=== PATIENT | male | born 1960 | race Caucasian/White ===

== ENCOUNTER 2016-06-25 12:57 | Emergency (ER) | payer BC, OTHER ==
[2016-06-25] MEDS ORDERED: KETOROLAC 30 MG/ML VIAL (J1885) As Ordered ONE (13:41)
[2016-06-25 13:57] LABS: BASO # 0.1 K/mm3 (0.0-0.2); BASO % 1.2 % (0.0-1.0); EOS # 0.3 K/mm3 (0.0-0.50); EOS % 3.7 % (0.0-3.0); LARGE UNSTAINED CELL # 0.1 K/mm3 (0.0-0.4); LARGE UNSTAINED CELL % 1.3 % (0.0-4.0); LYMPH # 1.6 K/mm3 (1.5-4.5); LYMPH % 16.9 % (24.0-44.0); MEAN CORPUSCULAR HEMOGLOBIN 28.4 pg (27.0-33.0); MEAN CORPUSCULAR VOLUME 83.6 fl (80.0-96.0); MONO # 0.5 K/mm3 (0.0-0.8); NEUTROPHILS # 6.4 K/mm3 (1.8-7.7); NEUTROPHILS % 71.8 % (36.0-66.0); PLATELET COUNT, AUTOMATED 249 k/mm3 (150-450); RED CELL DISTRIBUTION WIDTH 13.3 % (11.5-14.5); WHITE BLOOD COUNT 8.9 K/mm3 (4.0-10.0)
[2016-06-25 14:16] LABS: ALBUMIN 3.4 GM/DL (3.2-5.2); ALBUMIN/GLOBULIN RATIO 0.77 (1.00-1.93); ALKALINE PHOSPHATASE 69 U/L (45-117); ALT/SGPT 39 U/L (12-78); ANION GAP 7 MEQ/L (8-16); AST/SGOT 28 U/L (15-37); BILIRUBIN,DIRECT < 0.1 MG/DL (0.0-0.2); BILIRUBIN,TOTAL 0.4 MG/DL (0.2-1.0); BLOOD UREA NITROGEN 15 MG/DL (7-18); CALCIUM LEVEL 8.8 MG/DL (8.5-10.1); CARBON DIOXIDE LEVEL 28 MEQ/L (21-32); CHLORIDE LEVEL 105 MEQ/L (98-107); CREATININE FOR GFR 0.99 MG/DL (0.70-1.30); GLOMERULAR FILTRATION RATE > 60.0 (>56); GLUCOSE, FASTING 226 MG/DL (70-105); POTASSIUM SERUM 3.9 MEQ/L (3.5-5.1); SODIUM LEVEL 140 MEQ/L (136-145); TOTAL PROTEIN 7.8 GM/DL (6.4-8.2)
[2016-06-25] MEDS ORDERED: ISOVUE-370 76% 100ML VIAL (Q9967) As Ordered ONE (14:18)
--- NOTE | 2016-06-25 14:56 | REP ---
CT ABDOMEN AND PELVIS WITH IV BUT WITHOUT ORAL CONTRAST: HISTORY: Hernia. Comparison CT study is from October 18, 2003. The patient gives a prior history of hernia repair. CT contrast dose: 100 mL of Isovue 370 is administered intravenously by auto injector. 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 The lung bases are clear. There is no evidence of pleural effusion. There is moderate diffuse fatty infiltration of the liver. No focal liver lesion is appreciated. The spleen is unremarkable. No adrenal lesion is seen. Pancreas and gallbladder are intact and unremarkable. The kidneys enhance symmetrically. There is a peripheral cyst at the left mid kidney level posteriorly measuring 1.9 cm and a larger peripheral cyst is seen in the left lower pole measuring 5.0 cm in greatest diameter. This is a little larger than it was in 2004. There is a ventral hernia with omental fat in the periumbilical midline region. The abdominal wall defect measures 3.2 cm in medial to lateral span x 2.2 cm craniocaudal. Just above this is another smaller defect transmitting a lobule of fat 1.0 x 2.3 cm defect. No other abdominal wall defect is seen. No pelvic mass or adenopathy is seen. Urinary bladder, seminal vesicles and prostate are intact. Small and large intestinal bowel loops are unremarkable. Bone window settings show osteoarthritic changes in the hips and mild degenerative disc and facet changes in the lower lumbar spine. IMPRESSION: Periumbilical ventral hernia transmitting abdominal fat through two adjacent abdominal wall defects. Signed by Lewis Samayoa MD 06/25/2016 03:00 P
--- NOTE | 2016-06-25 15:24 | EDDOCDS ---
Physician Documentation [facility] Name: Korey Xie Age: 55 yrs Sex: Male : 1960 Arrival Date: 06/25/2016 Time: 12:57 Bed I3 / M3 Private MD: Shant Gordillo MD Disposition: 06/25/16 15:14 Discharged to Home/Self Care. Impression: Ventral hernia without obstruction or gangrene. - Condition is Stable. - Discharge Instructions: Ventral Hernia. - Prescriptions for Hydrocodone- Acetaminophen 5-325 mg Oral Tablet - take 1 tablet by ORAL route every 6 hours As needed MDD: 4 tabs; 16 tablet. Dulcolax 5 mg - take 2 tablet by ORAL route at bedtime As needed; 30 tablet. Miralax 17 gram/dose - take 17 gram by ORAL route once daily As needed dilute in 8 ounces of water or juice; 1 bottle. - Work Release Form - 3 day, Medication Reconciliation, Local Pharmacy Hours form. - Follow up: Korey Ballard; When: Call to arrange an appointment; Reason: Wound/Symptom Recheck, Recheck today's complaints, Continuance of care, To establish care. - Problem is an ongoing problem. - Symptoms have improved. Historical: - Allergies: PENICILLINS; - Home Meds: 1. metformin 1,000 mg Oral tab 1 tab 2 times per day (Last dose: 06/25/2016 09:30) 2. pravastatin 80 mg oral tab 1 tab once daily (Last dose: 06/24/2016 21:00) 3. glimepiride 2 mg Oral tab 1 tab once daily (Last dose: 06/25/2016 08:00) 4. Unknown BP med daily (Last dose: 06/25/2016) - PMHx: Diabetes - NIDDM: controlled; Hypercholesterolemia; Hypertension; - PSHx: Umbilical hernia repair 2003; - Social history: Smoking status: Patient states was never smoker of tobacco. No barriers to communication noted, The patient speaks fluent [place]. - Family history: Not pertinent. - : The pt / caregiver states he / she is not on anticoagulants. Home medication list is obtained from the patient. - Exposure Risk Screening:: None identified. Vital Signs: 06/25 12:58 BP 152 / 86; Pulse 64; Resp 18; Temp 97.3(O); Pulse Ox 97% on R/A; Weight 140.61 kg / elp 309.99 lbs (R); Height 6 ft. 2 in. (187.96 cm) (R); Pain 4/10; 14:21 Pain 2/10; dsf 15:16 BP 132 / 65; Pulse 61; Resp 18; Temp 96.5(O); Pulse Ox 95% on R/A; Pain 3/10; dem1 12:58 Body Mass Index 39.80 (140.61 kg, 187.96 cm) elp MDM: 13:30 IV Saline Lock ordered. cc10 13:30 Undress patient appropriately for examination ordered. cc10 13:30 ketorolac 30 mg IVP once ordered. cc10 13:30 Basic Metabolic Profile Ordered. EDMS 13:30 CBC with Diff Ordered. EDMS 13:31 Lipase Ordered. EDMS 13:31 Liver Profile Ordered. EDMS 13:31 Urinalysis Ordered. EDMS 13:31 CT ABD & PELVIS: IV Contrast Only Ordered. EDMS 13:31 NOTHING BY MOUTH+DIET ordered. EDMS 15:00 [facility] Payment Agreement was scanned into [employer] and attached to record. jp5 15:01 Financial registration complete. jp5 Administered Medications: 13:30 CANCELLED (Other Intervention Used): morphine 4 mg IVP once cc10 13:50 Drug: ketorolac 30 mg [ketorolac 30 mg/mL (1 mL) injection solution (1 mL)] Route: IVP; dsf Site: left antecubital; 14:21 Follow up: Pain 2/10 Adult dsf Signatures: Dispatcher [employer] EDPA Debra Chew RN RN Zhane Morales RN RN srm Fuller, Desiree, RN RN dsf Nacho Reis, PA-C PACarla cc Melissa Shaffer jp5 The chart was reviewed and I authenticate all verbal orders and agree with the evaluation and treatment provided.Corrections: (The following items were deleted from the chart) 13:30 13:30 morphine 4 mg IVP once ordered. cc10 cc10 15:18 13:11 Allergies: no known allergies; cuca srm Attachments: 15:00 [facility] [place] jp5 MTDD
--- NOTE | 2016-06-25 15:24 | EDDOCDS ---
Nurse's Notes [facility] Name: Korey Xie Age: 55 yrs Sex: Male : 1960 Arrival Date: 06/25/2016 Time: 12:57 Bed I3 / M3 Private MD: Shant Gordillo MD Diagnosis: Ventral hernia without obstruction or gangrene Presentation: 06/25 13:06 Presenting complaint: Patient states: Pain around umbilicus since 1030pm yesterday, no kpj nausea, vomiting or diarrhea. Adult Sepsis Screening: The patient does not have new or worsening altered mentation. Patient's respiratory rate is less than 22. Systolic blood pressure is greater than 100. Patient has a qSOFA score of 0- Negative Sepsis Screen. No known or suspected infection- Negative Sepsis Screen. Suicide/Homicide risk assessment- the patient denies having any suicidal and/or homicidal ideations and does not present with any other emotional, behavioral or mental health complaints. Status: Patient is not a social service agency director or dependent. Transition of care: patient was received from Dr. Rincon, [facility] in [place].. 13:06 Acuity: GENIE Level 3 [facility] 13:06 Method Of Arrival: Walkin/Carried/Asstd [facility] Triage Assessment: 13:11 General: Appears in no apparent distress. Pain: Pain currently is 5 out of 10 on a pain [facility] scale. HIV screening NA for this visit Offered previously. Historical: - Allergies: PENICILLINS; - Home Meds: 1. metformin 1,000 mg Oral tab 1 tab 2 times per day (Last dose: 06/25/2016 09:30) 2. pravastatin 80 mg oral tab 1 tab once daily (Last dose: 06/24/2016 21:00) 3. glimepiride 2 mg Oral tab 1 tab once daily (Last dose: 06/25/2016 08:00) 4. Unknown BP med daily (Last dose: 06/25/2016) - PMHx: Diabetes - NIDDM: controlled; Hypercholesterolemia; Hypertension; - PSHx: Umbilical hernia repair 2003; - Social history: Smoking status: Patient states was never smoker of tobacco. No barriers to communication noted, The patient speaks fluent Iraqi. - Family history: Not pertinent. - : The pt / caregiver states he / she is not on anticoagulants. Home medication list is obtained from the patient. - Exposure Risk Screening:: None identified. Screenin:21 Screening information is obtained from the patient. Fall risk: No risks identified. dsf Assistance ADL's: requires no assistance with activities of daily living. Abuse/DV Screen: The patient / caregiver reports he/she is: not in a situation that causes fear, pain or injury. Nutritional screening: No deficits noted. Advance Directives: Currently, there is no health care proxy. home support is adequate. Assessment: 13:48 General: Appears in no apparent distress, Behavior is appropriate for age, cooperative. srm EENT: No deficits noted. Respiratory: No deficits noted. Airway is patent Respiratory effort is even, unlabored, Breath sounds are clear bilaterally. GI: Abdomen is non- distended Bowel sounds present X 4 quads. Abd is soft X 4 quads Abd is tender to palpation in umbilical area. Derm: No deficits noted. 14:22 General: Appears in no apparent distress, Behavior is appropriate for age, cooperative. dsf Neurological: Level of Consciousness is awake, alert. Cardiovascular: Capillary refill < 3 seconds. Respiratory: Airway is patent Respiratory effort is even, unlabored, Respiratory pattern is regular, symmetrical. Derm: Skin is pink, warm & dry. 15:21 Adult Sepsis Screening: The patient does not have new or worsening altered mentation. dsf Patient's respiratory rate is less than 22. Systolic blood pressure is greater than 100. Patient has a qSOFA score of 0- Negative Sepsis Screen. General: Appears in no apparent distress, comfortable, Behavior is appropriate for age, cooperative. Neurological: Level of Consciousness is awake, alert. Cardiovascular: Capillary refill < 3 seconds. Respiratory: Airway is patent Respiratory effort is even, unlabored, Respiratory pattern is regular, symmetrical. Derm: Skin is pink, warm & dry. Vital Signs: 12:58 BP 152 / 86; Pulse 64; Resp 18; Temp 97.3(O); Pulse Ox 97% on R/A; Weight 140.61 kg elp (R); Height 6 ft. 2 in. (187.96 cm) (R); Pain 4/10; 14:21 Pain 2/10; dsf 15:16 BP 132 / 65; Pulse 61; Resp 18; Temp 96.5(O); Pulse Ox 95% on R/A; Pain 3/10; dem1 12:58 Body Mass Index 39.80 (140.61 kg, 187.96 cm) elp Vitals: 12:58 Log In Time: June 25, 2016 at 12:56. elp ED Course: 12:58 Patient visited by Stephanie Cadena PCA. elp 12:58 Shant Gordillo is Private Physician. elp 12:58 Patient moved to Waiting elp 12:59 Patient visited by Stephanie Cadena PCA. elp 12:59 Patient moved to Pre RCE elp 13:08 Triage Initiated kpj 13:23 Nacho Reis PA-C is PHCP. cc10 13:23 Rin Boone MD is Attending Physician. cc10 13:23 Patient visited by Nacho Reis PA-C. cc10 13:23 Patient visited by Nacho Reis PA-C. cc10 13:23 Patient moved to Triage 1 rs6 13:32 Patient moved to I3 / M3 dwg 13:48 The patient / caregiver is instructed regarding the plan of care and ED course. Patient srm has correct armband on for positive identification. Placed in gown. Bed in low position. Call light in reach. 13:48 Inserted saline lock: 20 gauge in left antecubital area and blood collected. srm 13:49 Basic Metabolic Profile Sent. srm 13:49 CBC with Diff Sent. srm 13:49 Lipase Sent. srm 13:49 Liver Profile Sent. srm 13:50 Patient visited by Zhane Lynch, LAVINIA. srm 14:[address] srm 14:22 Patient visited by Maria Isabel Albright,RN. dsf 14:29 Patient moved to I3 / M3 dem1 14:59 Urinalysis Sent. dsf 15:00 [facility] Payment Agreement was scanned into [employer] and attached to record. jp5 15:14 Korey Ballard is Referral Physician. cc10 15:16 Patient visited by Renea Ch. dem1 15:21 Discontinued lock intact, bleeding controlled, pressure dressing applied, No dsf redness/swelling at site. No procedures done that require assistance. Administered Medications: 13:30 CANCELLED (Other Intervention Used): morphine 4 mg IVP once cc10 13:50 Drug: ketorolac 30 mg [ketorolac 30 mg/mL (1 mL) injection solution (1 mL)] Route: IVP; dsf Site: left antecubital; 14:21 Follow up: Pain 07/10 Adult dsf Order Results: Lab Order: Basic Metabolic Profile; SPEC'M 06/25/16 13:45 Test: GLUCOSE, FASTING; Value: 226; Range: 70-105; Abnormal: Above high normal; Units: MG/DL; Status: F Test: BLOOD UREA NITROGEN; Value: 15; Range: 7-18; Units: MG/DL; Status: F Test: CREATININE FOR GFR; Value: 0.99; Range: 0.70-1.30; Units: MG/DL; Status: F Test: GLOMERULAR FILTRATION RATE; Value: > 60.0; Range: >56; Status: F Test: SODIUM LEVEL; Value: 140; Range: 136-145; Units: MEQ/L; Status: F Test: POTASSIUM SERUM; Value: 3.9; Range: 3.5-5.1; Units: MEQ/L; Status: F Test: CHLORIDE LEVEL; Value: 105; Range: 98-107; Units: MEQ/L; Status: F Test: CARBON DIOXIDE LEVEL; Value: 28; Range: 21-32; Units: MEQ/L; Status: F Test: ANION GAP; Value: 7; Range: 8-16; Abnormal: Below low normal; Units: MEQ/L; Status: F Test: CALCIUM LEVEL; Value: 8.8; Range: 8.5-10.1; Units: MG/DL; Status: F Test Note: ; Units are mL/min/1.73 m2 Chronic Kidney Disease Staging per NKF: Stage I & II GFR >=60 Normal to Mildly Decreased Stage III GFR 30-59 Moderately Decreased Stage IV GFR 15-29 Severely Decreased Stage V GFR <15 Very Little GFR Left ESRD GFR <15 on MANAGER INTERFACE Lab Order: CBC with Diff; SPEC'M 06/25/16 13:45 Test: WHITE BLOOD COUNT; Value: 8.9; Range: 4.0-10.0; Units: K/mm3; Status: F Test: RED BLOOD COUNT; Value: 5.34; Range: 4.30-6.10; Units: M/mm3; Status: F Test: HEMOGLOBIN; Value: 15.2; Range: 14.0-18.0; Units: g/dl; Status: F Test: HEMATOCRIT; Value: 44.6; Range: 42.0-52.0; Units: %; Status: F Test: MEAN CORPUSCULAR VOLUME; Value: 83.6; Range: 80.0-96.0; Units: fl; Status: F Test: MEAN CORPUSCULAR HEMOGLOBIN; Value: 28.4; Range: 27.0-33.0; Units: pg; Status: F Test: MEAN CORPUSCULAR HGB CONC; Value: 34.0; Range: 32.0-36.5; Units: g/dl; Status: F Test: RED CELL DISTRIBUTION WIDTH; Value: 13.3; Range: 11.5-14.5; Units: %; Status: F Test: PLATELET COUNT, AUTOMATED; Value: 249; Range: 150-450; Units: k/mm3; Status: F Test: NEUTROPHILS %; Value: 71.8; Range: 36.0-66.0; Abnormal: Above high normal; Units: %; Status: F Test: LYMPH %; Value: 16.9; Range: 24.0-44.0; Abnormal: Below low normal; Units: %; Status: F Test: MONO %; Value: 5.0; Range: 0.0-5.0; Units: %; Status: F Test: EOS %; Value: 3.7; Range: 0.0-3.0; Abnormal: Above high normal; Units: %; Status: F Test: BASO %; Value: 1.2; Range: 0.0-1.0; Abnormal: Above high normal; Units: %; Status: F Test: LARGE UNSTAINED CELL %; Value: 1.3; Range: 0.0-4.0; Units: %; Status: F Test: NEUTROPHILS #; Value: 6.4; Range: 1.8-7.7; Units: K/mm3; Status: F Test: LYMPH #; Value: 1.6; Range: 1.5-4.5; Units: K/mm3; Status: F Test: MONO #; Value: 0.5; Range: 0.0-0.8; Units: K/mm3; Status: F Test: EOS #; Value: 0.3; Range: 0.0-0.50; Units: K/mm3; Status: F Test: BASO #; Value: 0.1; Range: 0.0-0.2; Units: K/mm3; Status: F Test: LARGE UNSTAINED CELL #; Value: 0.1; Range: 0.0-0.4; Units: K/mm3; Status: F Lab Order: Lipase; SPEC'M 06/25/16 13:45 Test: LIPASE; Value: 81; Range: 73-393; Units: U/L; Status: F Lab Order: Liver Profile; SPEC'M 06/25/16 13:45 Test: AST/SGOT; Value: 28; Range: 15-37; Units: U/L; Status: F Test: ALT/SGPT; Value: 39; Range: 12-78; Units: U/L; Status: F Test: ALKALINE PHOSPHATASE; Value: 69; Range: 45-117; Units: U/L; Status: F Test: BILIRUBIN,TOTAL; Value: 0.4; Range: 0.2-1.0; Units: MG/DL; Status: F Test: BILIRUBIN,DIRECT; Value: < 0.1; Range: 0.0-0.2; Units: MG/DL; Status: F Test: TOTAL PROTEIN; Value: 7.8; Range: 6.4-8.2; Units: GM/DL; Status: F Test: ALBUMIN; Value: 3.4; Range: 3.2-5.2; Units: GM/DL; Status: F Test: ALBUMIN/GLOBULIN RATIO; Value: 0.77; Range: 1.00-1.93; Abnormal: Below low normal; Status: F Outcome: 15:14 Discharge ordered by Provider. [facility] 15:21 Discharge Assessment: Patient awake, alert and oriented x 3. No cognitive and/or dsf functional deficits noted. Patient verbalized understanding of disposition instructions. patient administered narcotics - no. The following High Risk Discharge criteria are identified: None. Discharged to home ambulatory. Condition: stable. Discharge instructions given to patient, Instructed on discharge instructions, follow up and referral plans. medication usage, no driving heavy equipment, Demonstrated understanding of instructions, medications, Pt was receptive of discharge instructions/ teaching. Prescriptions given X 3. CT Study completed. Property sent home with patient. 15:22 Patient left the ED. dsf Signatures: Matheus Urban RN RN Debra Headley RN RN kpj Zhane Lynch, RN RN srm Jose Ramon,Maria Isabel,RN RN Renea Beal dem1 Surinder, Stephanie, SECURITIES ATTORNEY SECURITIES ATTORNEY elp Chato, Nacho, PA-C PA-C cc10 Cecelia Reina, SECURITIES ATTORNEY SECURITIES ATTORNEY rs6 Melissa Shaffer jp5 Corrections: (The following items were deleted from the chart) 15:18 13:11 Allergies: no known allergies; [facility] srm MTDD
--- NOTE | 2016-06-27 16:24 | EDDOCDS ---
Physician Documentation [facility] Name: Korey Xie Age: 55 yrs Sex: Male : 1960 Arrival Date: 06/25/2016 Time: 12:57 Bed I3 / M3 Private MD: Shant Gordillo MD Disposition: 06/25/16 15:14 Discharged to Home/Self Care. Impression: Ventral hernia without obstruction or gangrene. - Condition is Stable. - Discharge Instructions: Ventral Hernia. - Prescriptions for Hydrocodone- Acetaminophen 5-325 mg Oral Tablet - take 1 tablet by ORAL route every 6 hours As needed MDD: 4 tabs; 16 tablet. Dulcolax 5 mg - take 2 tablet by ORAL route at bedtime As needed; 30 tablet. Miralax 17 gram/dose - take 17 gram by ORAL route once daily As needed dilute in 8 ounces of water or juice; 1 bottle. - Work Release Form - 3 day, Medication Reconciliation, Local Pharmacy Hours form. - Follow up: Korey Ballard; When: Call to arrange an appointment; Reason: Wound/Symptom Recheck, Recheck today's complaints, Continuance of care, To establish care. - Problem is an ongoing problem. - Symptoms have improved. Historical: - Allergies: PENICILLINS; - Home Meds: 1. metformin 1,000 mg Oral tab 1 tab 2 times per day (Last dose: 06/25/2016 09:30) 2. pravastatin 80 mg oral tab 1 tab once daily (Last dose: 06/24/2016 21:00) 3. glimepiride 2 mg Oral tab 1 tab once daily (Last dose: 06/25/2016 08:00) 4. Unknown BP med daily (Last dose: 06/25/2016) - PMHx: Diabetes - NIDDM: controlled; Hypercholesterolemia; Hypertension; - PSHx: Umbilical hernia repair 2003; - Social history: Smoking status: Patient states was never smoker of tobacco. No barriers to communication noted, The patient speaks fluent Armenian. - Family history: Not pertinent. - : The pt / caregiver states he / she is not on anticoagulants. Home medication list is obtained from the patient. - Exposure Risk Screening:: None identified. Vital Signs: 06/25 12:58 BP 152 / 86; Pulse 64; Resp 18; Temp 97.3(O); Pulse Ox 97% on R/A; Weight 140.61 kg / elp 309.99 lbs (R); Height 6 ft. 2 in. (187.96 cm) (R); Pain 4/10; 14:21 Pain 2/10; dsf 15:16 BP 132 / 65; Pulse 61; Resp 18; Temp 96.5(O); Pulse Ox 95% on R/A; Pain 3/10; dem1 12:58 Body Mass Index 39.80 (140.61 kg, 187.96 cm) elp MDM: 13:30 IV Saline Lock ordered. cc10 13:30 Undress patient appropriately for examination ordered. cc10 13:30 ketorolac 30 mg IVP once ordered. cc10 13:30 Basic Metabolic Profile Ordered. EDMS 13:30 CBC with Diff Ordered. EDMS 13:31 Lipase Ordered. EDMS 13:31 Liver Profile Ordered. EDMS 13:31 Urinalysis Ordered. EDMS 13:31 CT ABD & PELVIS: IV Contrast Only Ordered. EDMS 13:31 NOTHING BY MOUTH+DIET ordered. EDMS 15:00 [facility] Payment Agreement was scanned into [employer] and attached to record. jp5 15:01 Financial registration complete. jp5 06/26 11:01 T-Sheet-- Draft Copy was scanned into [employer] and attached to record. gb Administered Medications: 06/25 13:30 CANCELLED (Other Intervention Used): morphine 4 mg IVP once cc10 13:50 Drug: ketorolac 30 mg [ketorolac 30 mg/mL (1 mL) injection solution (1 mL)] Route: IVP; dsf Site: left antecubital; 14:21 Follow up: Pain 2/10 Adult dsf Signatures: Dispatcher [employer] EDMS Debra Chew RN RN kpj Michelson, Staci RN RN srm Shayla Erwin, Reg Reg Maria Isabel Delacruz RN RN dsf Nacho Reis PA-C PA-C cc10 Melissa Shaffer 5 The chart was reviewed and I authenticate all verbal orders and agree with the evaluation and treatment provided.Corrections: (The following items were deleted from the chart) 13:30 13:30 morphine 4 mg IVP once ordered. cc10 cc10 15:18 13:11 Allergies: no known allergies; kpj srm Attachments: 15:00 [facility] Payment Agreement jp5 06/26 11:01 T-Sheet-- Draft Copy gb Chart Complete MTDD
--- NOTE | 2016-06-27 16:24 | EDDOCDS ---
Nurse's Notes [facility] Name: Korey Xie Age: 55 yrs Sex: Male : 1960 Arrival Date: 06/25/2016 Time: 12:57 Bed I3 / M3 Private MD: Shant Gordillo MD Diagnosis: Ventral hernia without obstruction or gangrene Presentation: 06/25 13:06 Presenting complaint: Patient states: Pain around umbilicus since 1030pm yesterday, no kpj nausea, vomiting or diarrhea. Adult Sepsis Screening: The patient does not have new or worsening altered mentation. Patient's respiratory rate is less than 22. Systolic blood pressure is greater than 100. Patient has a qSOFA score of 0- Negative Sepsis Screen. No known or suspected infection- Negative Sepsis Screen. Suicide/Homicide risk assessment- the patient denies having any suicidal and/or homicidal ideations and does not present with any other emotional, behavioral or mental health complaints. Status: Patient is not a maintenance service technician or dependent. Transition of care: patient was received from Dr. Rincon, Table Worker in canvas.. 13:06 Acuity: GENIE Level 3 [facility] 13:06 Method Of Arrival: Walkin/Carried/Asstd [facility] Triage Assessment: 13:11 General: Appears in no apparent distress. Pain: Pain currently is 5 out of 10 on a pain [facility] scale. HIV screening NA for this visit Offered previously. Historical: - Allergies: PENICILLINS; - Home Meds: 1. metformin 1,000 mg Oral tab 1 tab 2 times per day (Last dose: 06/25/2016 09:30) 2. pravastatin 80 mg oral tab 1 tab once daily (Last dose: 06/24/2016 21:00) 3. glimepiride 2 mg Oral tab 1 tab once daily (Last dose: 06/25/2016 08:00) 4. Unknown BP med daily (Last dose: 06/25/2016) - PMHx: Diabetes - NIDDM: controlled; Hypercholesterolemia; Hypertension; - PSHx: Umbilical hernia repair 2003; - Social history: Smoking status: Patient states was never smoker of tobacco. No barriers to communication noted, The patient speaks fluent Haitian. - Family history: Not pertinent. - : The pt / caregiver states he / she is not on anticoagulants. Home medication list is obtained from the patient. - Exposure Risk Screening:: None identified. Screenin:21 Screening information is obtained from the patient. Fall risk: No risks identified. dsf Assistance ADL's: requires no assistance with activities of daily living. Abuse/DV Screen: The patient / caregiver reports he/she is: not in a situation that causes fear, pain or injury. Nutritional screening: No deficits noted. Advance Directives: Currently, there is no health care proxy. home support is adequate. Assessment: 13:48 General: Appears in no apparent distress, Behavior is appropriate for age, cooperative. srm EENT: No deficits noted. Respiratory: No deficits noted. Airway is patent Respiratory effort is even, unlabored, Breath sounds are clear bilaterally. GI: Abdomen is non- distended Bowel sounds present X 4 quads. Abd is soft X 4 quads Abd is tender to palpation in umbilical area. Derm: No deficits noted. 14:22 General: Appears in no apparent distress, Behavior is appropriate for age, cooperative. dsf Neurological: Level of Consciousness is awake, alert. Cardiovascular: Capillary refill < 3 seconds. Respiratory: Airway is patent Respiratory effort is even, unlabored, Respiratory pattern is regular, symmetrical. Derm: Skin is pink, warm & dry. 15:21 Adult Sepsis Screening: The patient does not have new or worsening altered mentation. dsf Patient's respiratory rate is less than 22. Systolic blood pressure is greater than 100. Patient has a qSOFA score of 0- Negative Sepsis Screen. General: Appears in no apparent distress, comfortable, Behavior is appropriate for age, cooperative. Neurological: Level of Consciousness is awake, alert. Cardiovascular: Capillary refill < 3 seconds. Respiratory: Airway is patent Respiratory effort is even, unlabored, Respiratory pattern is regular, symmetrical. Derm: Skin is pink, warm & dry. Vital Signs: 12:58 BP 152 / 86; Pulse 64; Resp 18; Temp 97.3(O); Pulse Ox 97% on R/A; Weight 140.61 kg elp (R); Height 6 ft. 2 in. (187.96 cm) (R); Pain 4/10; 14:21 Pain 2/10; dsf 15:16 BP 132 / 65; Pulse 61; Resp 18; Temp 96.5(O); Pulse Ox 95% on R/A; Pain 3/10; dem1 12:58 Body Mass Index 39.80 (140.61 kg, 187.96 cm) [facility] Vitals: 12:58 Log In Time: June 25, 2016 at 12:56. p ED Course: 12:58 Patient visited by Stephanie Cadena PCA. elp 12:58 Shant Gordillo is Private Physician. elp 12:58 Patient moved to Waiting elp 12:59 Patient visited by Stephanie Cadena PCA. elp 12:59 Patient moved to Pre RCE elp 13:08 Triage Initiated kpj 13:23 Nacho Reis PA-C is PHCP. cc10 13:23 Rin Boone MD is Attending Physician. cc10 13:23 Patient visited by Nacho Reis PA-C. cc10 13:23 Patient visited by Nacho Reis PA-C. cc10 13:23 Patient moved to Triage 1 rs6 13:32 Patient moved to I3 / M3 dwg 13:48 The patient / caregiver is instructed regarding the plan of care and ED course. Patient srm has correct armband on for positive identification. Placed in gown. Bed in low position. Call light in reach. 13:48 Inserted saline lock: 20 gauge in left antecubital area and blood collected. srm 13:49 Basic Metabolic Profile Sent. srm 13:49 CBC with Diff Sent. srm 13:49 Lipase Sent. srm 13:49 Liver Profile Sent. srm 13:50 Patient visited by Zhane Lynch, LAVINIA. srm 14:[address] srm 14:22 Patient visited by Maria Isabel Albright,LAVINIA. dsf 14:29 Patient moved to I3 / M3 dem1 14:59 Urinalysis Sent. dsf 15:00 [facility] Payment Agreement was scanned into [employer] and attached to record. jp5 15:14 Korey Ballard is Referral Physician. cc10 15:16 Patient visited by Renea Ch. dem1 15:21 Discontinued lock intact, bleeding controlled, pressure dressing applied, No dsf redness/swelling at site. No procedures done that require assistance. 15:25 Patient name changed from Korey\S\\S\Shambo\S\ to Korey\S\Frederic\S\Shambo. EDMS 15:30 CT ABD & PELVIS: IV Contrast Only Returned. EDOR 06/26 11:01 T-Sheet-- Draft Copy was scanned into [employer] and attached to record. gb Administered Medications: 06/25 13:30 CANCELLED (Other Intervention Used): morphine 4 mg IVP once cc10 13:50 Drug: ketorolac 30 mg [ketorolac 30 mg/mL (1 mL) injection solution (1 mL)] Route: IVP; dsf Site: left antecubital; 14:21 Follow up: Pain 07/10 Adult dsf Order Results: Lab Order: Basic Metabolic Profile; SPEC'M 06/25/16 13:45 Test: GLUCOSE, FASTING; Value: 226; Range: 70-105; Abnormal: Above high normal; Units: MG/DL; Status: F Test: BLOOD UREA NITROGEN; Value: 15; Range: 7-18; Units: MG/DL; Status: F Test: CREATININE FOR GFR; Value: 0.99; Range: 0.70-1.30; Units: MG/DL; Status: F Test: GLOMERULAR FILTRATION RATE; Value: > 60.0; Range: >56; Status: F Test: SODIUM LEVEL; Value: 140; Range: 136-145; Units: MEQ/L; Status: F Test: POTASSIUM SERUM; Value: 3.9; Range: 3.5-5.1; Units: MEQ/L; Status: F Test: CHLORIDE LEVEL; Value: 105; Range: 98-107; Units: MEQ/L; Status: F Test: CARBON DIOXIDE LEVEL; Value: 28; Range: 21-32; Units: MEQ/L; Status: F Test: ANION GAP; Value: 7; Range: 8-16; Abnormal: Below low normal; Units: MEQ/L; Status: F Test: CALCIUM LEVEL; Value: 8.8; Range: 8.5-10.1; Units: MG/DL; Status: F Test Note: ; Units are mL/min/1.73 m2 Chronic Kidney Disease Staging per NKF: Stage I & II GFR >=60 Normal to Mildly Decreased Stage III GFR 30-59 Moderately Decreased Stage IV GFR 15-29 Severely Decreased Stage V GFR <15 Very Little GFR Left ESRD GFR <15 on CHIEF CRUISER Lab Order: CBC with Diff; SPEC'M 06/25/16 13:45 Test: WHITE BLOOD COUNT; Value: 8.9; Range: 4.0-10.0; Units: K/mm3; Status: F Test: RED BLOOD COUNT; Value: 5.34; Range: 4.30-6.10; Units: M/mm3; Status: F Test: HEMOGLOBIN; Value: 15.2; Range: 14.0-18.0; Units: g/dl; Status: F Test: HEMATOCRIT; Value: 44.6; Range: 42.0-52.0; Units: %; Status: F Test: MEAN CORPUSCULAR VOLUME; Value: 83.6; Range: 80.0-96.0; Units: fl; Status: F Test: MEAN CORPUSCULAR HEMOGLOBIN; Value: 28.4; Range: 27.0-33.0; Units: pg; Status: F Test: MEAN CORPUSCULAR HGB CONC; Value: 34.0; Range: 32.0-36.5; Units: g/dl; Status: F Test: RED CELL DISTRIBUTION WIDTH; Value: 13.3; Range: 11.5-14.5; Units: %; Status: F Test: PLATELET COUNT, AUTOMATED; Value: 249; Range: 150-450; Units: k/mm3; Status: F Test: NEUTROPHILS %; Value: 71.8; Range: 36.0-66.0; Abnormal: Above high normal; Units: %; Status: F Test: LYMPH %; Value: 16.9; Range: 24.0-44.0; Abnormal: Below low normal; Units: %; Status: F Test: MONO %; Value: 5.0; Range: 0.0-5.0; Units: %; Status: F Test: EOS %; Value: 3.7; Range: 0.0-3.0; Abnormal: Above high normal; Units: %; Status: F Test: BASO %; Value: 1.2; Range: 0.0-1.0; Abnormal: Above high normal; Units: %; Status: F Test: LARGE UNSTAINED CELL %; Value: 1.3; Range: 0.0-4.0; Units: %; Status: F Test: NEUTROPHILS #; Value: 6.4; Range: 1.8-7.7; Units: K/mm3; Status: F Test: LYMPH #; Value: 1.6; Range: 1.5-4.5; Units: K/mm3; Status: F Test: MONO #; Value: 0.5; Range: 0.0-0.8; Units: K/mm3; Status: F Test: EOS #; Value: 0.3; Range: 0.0-0.50; Units: K/mm3; Status: F Test: BASO #; Value: 0.1; Range: 0.0-0.2; Units: K/mm3; Status: F Test: LARGE UNSTAINED CELL #; Value: 0.1; Range: 0.0-0.4; Units: K/mm3; Status: F Lab Order: Lipase; SPEC'M 06/25/16 13:45 Test: LIPASE; Value: 81; Range: 73-393; Units: U/L; Status: F Lab Order: Liver Profile; SPEC'M 06/25/16 13:45 Test: AST/SGOT; Value: 28; Range: 15-37; Units: U/L; Status: F Test: ALT/SGPT; Value: 39; Range: 12-78; Units: U/L; Status: F Test: ALKALINE PHOSPHATASE; Value: 69; Range: 45-117; Units: U/L; Status: F Test: BILIRUBIN,TOTAL; Value: 0.4; Range: 0.2-1.0; Units: MG/DL; Status: F Test: BILIRUBIN,DIRECT; Value: < 0.1; Range: 0.0-0.2; Units: MG/DL; Status: F Test: TOTAL PROTEIN; Value: 7.8; Range: 6.4-8.2; Units: GM/DL; Status: F Test: ALBUMIN; Value: 3.4; Range: 3.2-5.2; Units: GM/DL; Status: F Test: ALBUMIN/GLOBULIN RATIO; Value: 0.77; Range: 1.00-1.93; Abnormal: Below low normal; Status: F Radiology Order: CT ABD & PELVIS: IV Contrast Only Test: CT ABD & PELVIS: IV Contrast Only REASON FOR EXAMINATION: hernia; CT ABDOMEN AND PELVIS WITH IV BUT WITHOUT ORAL CONTRAST:; ; HISTORY: Hernia.; ; Comparison CT study is from October 18, 2003. The patient gives a prior history of; hernia repair.; ; CT contrast dose: 100 mL of Isovue 370 is administered intravenously by auto; injector.; ; CT FINDINGS: Preliminary digital cooler tender radiograph demonstrates a normal bowel gas; pattern. The lung bases are clear. There is no evidence of pleural effusion.; There is moderate diffuse fatty infiltration of the liver. No focal liver lesion; is appreciated. The spleen is unremarkable. No adrenal lesion is seen.; Pancreas and gallbladder are intact and unremarkable. The kidneys enhance; symmetrically. There is a peripheral cyst at the left mid kidney level; posteriorly measuring 1.9 cm and a larger peripheral cyst is seen in the left; lower pole measuring 5.0 cm in greatest diameter. This is a little larger than; it was in 2004.; ; There is a ventral hernia with omental fat in the periumbilical midline region.; The abdominal wall defect measures 3.2 cm in medial to lateral span x 2.2 cm; craniocaudal. Just above this is another smaller defect transmitting a lobule of; fat 1.0 x 2.3 cm defect. No other abdominal wall defect is seen. No pelvic mass; or adenopathy is seen. Urinary bladder, seminal vesicles and prostate are; intact. Small and large intestinal bowel loops are unremarkable. Bone window; settings show osteoarthritic changes in the hips and mild degenerative disc and; facet changes in the lower lumbar spine.; ; IMPRESSION: Periumbilical ventral hernia transmitting abdominal fat through two; adjacent abdominal wall defects.; ; ; Signed by; Lewis Samayoa MD 06/25/2016 03:00 P; Outcome: 15:14 Discharge ordered by Provider. cc10 15:21 Discharge Assessment: Patient awake, alert and oriented x 3. No cognitive and/or dsf functional deficits noted. Patient verbalized understanding of disposition instructions. patient administered narcotics - no. The following High Risk Discharge criteria are identified: None. Discharged to home ambulatory. Condition: stable. Discharge instructions given to patient, Instructed on discharge instructions, follow up and referral plans. medication usage, no driving heavy equipment, Demonstrated understanding of instructions, medications, Pt was receptive of discharge instructions/ teaching. Prescriptions given X 3. CT Study completed. Property sent home with patient. 15:22 Patient left the ED. dsf Signatures: Dispatcher [facility] EDMatheus Rod RN RN Debra Headley RN RN kpj Michelson, Staci, RN RN srm Yaima, Shayla, Reg Reg gb Maria Isabel Albright,RN RN dsf Renea Ch dem1 José Antonioen, Stephanie, GALLERY MANAGER GALLERY MANAGER elp Nacho Reis, PA-C PA-C cc10 Cecelia Reina, GALLERY MANAGER GALLERY MANAGER rs6 Melissa Shaffer jp5 Corrections: (The following items were deleted from the chart) 15:18 13:11 Allergies: no known allergies; [facility] srm Chart Complete MTDD
--- NOTE | 2016-06-27 16:24 | EDDOCDS ---
Physician Documentation [facility] Name: Korey Xie Age: 55 yrs Sex: Male : 1960 Arrival Date: 06/25/2016 Time: 12:57 Bed I3 / M3 Private MD: Shant Gordillo MD Disposition: 06/25/16 15:14 Discharged to Home/Self Care. Impression: Ventral hernia without obstruction or gangrene. - Condition is Stable. - Discharge Instructions: Ventral Hernia. - Prescriptions for Hydrocodone- Acetaminophen 5-325 mg Oral Tablet - take 1 tablet by ORAL route every 6 hours As needed MDD: 4 tabs; 16 tablet. Dulcolax 5 mg - take 2 tablet by ORAL route at bedtime As needed; 30 tablet. Miralax 17 gram/dose - take 17 gram by ORAL route once daily As needed dilute in 8 ounces of water or juice; 1 bottle. - Work Release Form - 3 day, Medication Reconciliation, Local Pharmacy Hours form. - Follow up: Korey Ballard; When: Call to arrange an appointment; Reason: Wound/Symptom Recheck, Recheck today's complaints, Continuance of care, To establish care. - Problem is an ongoing problem. - Symptoms have improved. Historical: - Allergies: PENICILLINS; - Home Meds: 1. metformin 1,000 mg Oral tab 1 tab 2 times per day (Last dose: 06/25/2016 09:30) 2. pravastatin 80 mg oral tab 1 tab once daily (Last dose: 06/24/2016 21:00) 3. glimepiride 2 mg Oral tab 1 tab once daily (Last dose: 06/25/2016 08:00) 4. Unknown BP med daily (Last dose: 06/25/2016) - PMHx: Diabetes - NIDDM: controlled; Hypercholesterolemia; Hypertension; - PSHx: Umbilical hernia repair 2003; - Social history: Smoking status: Patient states was never smoker of tobacco. No barriers to communication noted, The patient speaks fluent Vietnamese. - Family history: Not pertinent. - : The pt / caregiver states he / she is not on anticoagulants. Home medication list is obtained from the patient. - Exposure Risk Screening:: None identified. Vital Signs: 06/25 12:58 BP 152 / 86; Pulse 64; Resp 18; Temp 97.3(O); Pulse Ox 97% on R/A; Weight 140.61 kg / elp 309.99 lbs (R); Height 6 ft. 2 in. (187.96 cm) (R); Pain 4/10; 14:21 Pain 2/10; dsf 15:16 BP 132 / 65; Pulse 61; Resp 18; Temp 96.5(O); Pulse Ox 95% on R/A; Pain 3/10; dem1 12:58 Body Mass Index 39.80 (140.61 kg, 187.96 cm) elp MDM: 13:30 IV Saline Lock ordered. cc10 13:30 Undress patient appropriately for examination ordered. cc10 13:30 ketorolac 30 mg IVP once ordered. cc10 13:30 Basic Metabolic Profile Ordered. EDMS 13:30 CBC with Diff Ordered. EDMS 13:31 Lipase Ordered. EDMS 13:31 Liver Profile Ordered. EDMS 13:31 Urinalysis Ordered. EDMS 13:31 CT ABD & PELVIS: IV Contrast Only Ordered. EDMS 13:31 NOTHING BY MOUTH+DIET ordered. EDMS 15:00 [facility] Payment Agreement was scanned into [employer]Only and attached to record. jp5 15:01 Financial registration complete. jp5 06/26 11:01 T-Sheet-- Draft Copy was scanned into [employer] and attached to record. gb Administered Medications: 06/25 13:30 CANCELLED (Other Intervention Used): morphine 4 mg IVP once cc10 13:50 Drug: ketorolac 30 mg [ketorolac 30 mg/mL (1 mL) injection solution (1 mL)] Route: IVP; dsf Site: left antecubital; 14:21 Follow up: Pain 2/10 Adult dsf Signatures: Dispatcher [employer] EDMS Debra Chew RN RN kpj Michelson, Staci RN RN srm Shayla Erwin, Reg Reg Maria Isabel Delacruz RN RN dsf Nacho Reis PA-C PA-C cc10 Melissa Shaffer 5 The chart was reviewed and I authenticate all verbal orders and agree with the evaluation and treatment provided.Corrections: (The following items were deleted from the chart) 13:30 13:30 morphine 4 mg IVP once ordered. cc10 cc10 15:18 13:11 Allergies: no known allergies; kpj srm Attachments: 15:00 [facility] Payment Agreement jp5 06/26 11:01 T-Sheet-- Draft Copy gb Chart Complete MTDD
== END 2016-06-25 15:22 | disposition home or self-care (01) ==
LOC: M ED 12:57
DX: K43.9 Ventral hernia without obstruction or gangrene (principal); E11.9 Type 2 diabetes mellitus without complications; I10 Essential (primary) hypertension; E66.9 Obesity, unspecified; E78.00 Pure hypercholesterolemia, unspecified; Z79.899 Other long term (current) drug therapy; Z79.84 Long term (current) use of oral hypoglycemic drugs; Z88.0 Allergy status to penicillin; Z68.39 Body mass index [BMI] 39.0-39.9, adult
CPT/HCPCS: 36415; 74177; 80048; 80076; 83690; 85025; 96374; 99284; J1885; Q9967

== ENCOUNTER → 2016-08-20 | Day surgery (SDC) | payer BC, OTHER ==
[~2016-08-20] VITALS: Ht 188 cm; Wt 140.6 kg
[~2016-08-20] MED LIST: BISO2.5T PO; BUPIVACAINE HCL 0.25% 30 ML VIAL XX ONE; GLIM2TAB PO; GLYCOPYRROLATE INJ 0.2 MG/ML 2 ML VIAL As Ordered ONE; HYDROmorphone HCL 2 MG/ML 1ML VIAL (J1170) As Ordered ONE; HumaLOG INSULIN (NovoLOG) PER UNIT As Ordered ONE; HumaLOG INSULIN (NovoLOG) PER UNIT SC ONE; KETOROLAC 60 MG/2 ML VIAL (J1885) As Ordered ONE; LIDOCAINE 2% INJ 100 MG/5 ML SDV (FOR ANES.) As Ordered ONE; LR 1,000 ML IV SCH; METF500T PO; METOCLOPRAMIDE INJ 10MG/2ML VIAL (J2765) IV PRN; MIDAZOLAM INJ 2 MG/2 ML VIAL (J2250) As Ordered ONE; NEOSTIGMINE 1MG/ML 5 ML SYRINGE (J2710) As Ordered ONE; NORCO, ANEXSIA 5/325MG TABLET (HYDROcodone/ACETAMINOPHEN) PO PRN; ONDANSETRON 4MG/2ML VIAL (J2405) As Ordered ONE; ONDANSETRON 4MG/2ML VIAL (J2405) IV PRN; PRAV80TA PO; PROPOFOL 500 MG/50 ML VIAL As Ordered ONE; ROCURONIUM BROMIDE 50 MG/5 ML VIAL As Ordered ONE; fentaNYL 100 MCG/2 ML INJECTION (J3010) As Ordered ONE; fentaNYL 100 MCG/2 ML INJECTION (J3010) IV PRN
[2016-08-20] MEDS: PERCOCET 5MG/325MG TAB PO PRN ×2 (17:00→17:30)
--- NOTE | 2016-08-20 22:17 | ECGEPIP ---
Stationary ECG Study [facility] Test Date: 2016-08-20 Pat Name: JOSÉ ANTONIO FLEMING Department: Room: - Gender: M Sticker On: LINDA : 1960 Requested By: VINNIE Feliciano Order Number: [id number] Reading MD: Marcella Willoughby Measurements Intervals Eunice Rate: 65 P: 23 NH: 204 QRS: 14 QRSD: 102 T: 6 QT: 392 QTc: 410 Interpretive Statements SINUS RHYTHM POSSIBLE INFERIOR MYOCARDIAL INFARCTION OF UNDETERMINED AGE NO PRIOR Electronically Signed On 08-20-2016 22:16:55 EDT by Marcella Willoughby
[2016-08-20 22:25] VITALS: BP 133/74
--- NOTE | 2016-08-21 09:00 | RO ---
DATE OF PROCEDURE: 08/20/2016 PREOPERATIVE DIAGNOSIS: Incarcerated ventral incisional hernia. POSTOPERATIVE DIAGNOSIS: Incarcerated ventral incisional hernia. PROCEDURE PERFORMED: Laparoscopic reduction and repair of incarcerated incisional hernia with 15 cm Parietex mesh. The mesh utilized was reference code [id number], lot number [id number]. SURGEON: Dr. Ballard CHIEF LOCK TENDER OPERATOR: Dr. Lomax ANESTHESIA: General. INDICATIONS FOR THE PROCEDURE: Patient is a 55-year-old man who had undergone repair of an umbilical hernia some years ago. He noted a recurrence, which has increased over time, and he has a large bulge at the umbilicus now. A CT scan had shown actually two fascial defects, one of which was large with a slightly smaller defect just above this along the midline. The hernias contained fatty tissue but no bowel. He is now for laparoscopic repair. DESCRIPTION OF PROCEDURE: The patient was placed under general endotracheal anesthesia. The patient's abdomen was prepped and draped in a sterile fashion. 0.25% Marcaine was infiltrated at the trocar sites prior to insertion. A short incision was made in the right upper quadrant and a Veress needle was inserted. After a positive hanging drop test, the abdomen was insufflated with carbon dioxide gas. A 5 mm port was placed over a 5 mm 30 degree scope and this was advanced through the abdominal wall without difficulty. Initial exam showed no evidence of injury. The patient was noted to have some significant fibrofatty tissue adherent up into the area of his hernia at the umbilicus. A second 5 mm trocar was placed at the level of the umbilicus in the right lateral abdomen. A third 5 mm trocar was placed in the right lower quadrant. Using a grasper and the Harmonic scalpel, some of the adhesions around the fascial defect were cleared using the Harmonic scalpel. The contents of the hernia were reduced by grasping from within and withdrawing these from the large hernia sac. There were some adhesions of the omentum that were divided during the course of dissection with the Harmonic scalpel. There was a piece of the omentum that was transected in removing it from the hernia sac and this was placed off to the side for later removal. Hemostasis was ensured with the Harmonic scalpel. I elected to remove some of the thickened fibrofatty tissue along the midline extending from his umbilical fascial defect toward the pelvis and also to peel away a small amount of tissue around the opening. The layer of fat above the level of the defect was quite thin and narrow along the midline. Once the fatty tissue had been peeled inferiorly, perhaps 5-6 cm, this was transected and also set aside for later removal. At this point, the abdomen was deflated. An approximately 6-7 cm incision was made along the left side of the umbilicus running longitudinally. The incision was deepened into subcutaneous tissue. The large hernia sac was identified and dissected free from surrounding structures. This was freed down to the level of the fascia where it was transected and removed. A small portion of fatty tissue attached was removed as well. Palpation through this defect, which was approximately 4-5 cm in diameter and roughly round, showed a second small defect as anticipated slightly higher along the midline. The second defect also contained some fibrofatty tissue and was about 1.5 cm in diameter. The small hernia sac was dissected free and removed as well. Hemostasis was ensured with the electrocautery. Measurement suggested that a 15 cm patch would nicely closed the area with a wide overlap on all sides of these two fascial defects. Therefore, a Parietex patch, which was 15 cm in diameter and in a round shape, was selected. A #0 Ethibond suture was placed at the midpoint of the larger fascial defect to close this transversely. As the suture was placed, a very small bite was taken of the central portion of the mesh just below the midpoint. Before this suture was tied down, the mesh was reduced into the abdomen and this suture was then tied. Additional #0 Ethibond sutures were placed to close the smaller fascial defect and the remaining portion of the larger fascial defect. At this point, the abdomen was reinflated with carbon dioxide to a maximum pressure of 10 mmHg. The laparoscope was inserted. The mesh was spread using a grasper and a SecureStrap tacker was used to tack down the mesh to the anterior abdominal wall. Care was taken to tack down the entire periphery at reasonable intervals and also to place multiple tacks within the more interior aspect of the mesh to ensure that this was solidly applied to the anterior abdominal wall. Two 25 tack devices were used rather to apply the mesh. A small amount of bleeding was noted that one of the SecureStrap sites in the left midabdomen. This was compressed using a grasper internally and manual pressure externally for several minutes and the bleeding stopped. Final examination showed active excellent application of mesh without any significant wrinkles or folds. The excised portions of fibrofatty tissue I would note had been removed when the fascial defect was opened for placement of the mesh. Final inspection within the abdomen showed no bleeding. The abdomen was deflated and the trocars were removed. The small trocar sites were closed with buried Vicryl sutures and Steri-Strips. The incision at the umbilicus was closed with some #0 Vicryl for the subcutaneous tissues. The umbilical skin was tacked down to the fascia with a single #3-0 Vicryl. Several #3-0 Vicryl sutures were placed to align the skin edges and the skin edges were approximated with a running subcuticular #5-0 Vicryl and Steri-Strips. Some additional Marcaine was infiltrated along the midline wound. The patient tolerated the procedure well without apparent complication. He was awakened in the operating room, extubated and moved to the recovery room in stable condition.
== END | disposition home or self-care (01) ==
LOC: M SDC 08:20
PROVIDERS: ATTEND Surgery
DX: K43.0 Incisional hernia with obstruction, without gangrene (principal); I10 Essential (primary) hypertension; E11.9 Type 2 diabetes mellitus without complications; E78.00 Pure hypercholesterolemia, unspecified; Z79.899 Other long term (current) drug therapy
CPT/HCPCS: 49653; 88302; 93005; C1781; J1170; J1885; J2250; J2405; J2710; J3010

== ENCOUNTER 2019-03-21 08:36 | Day surgery (SDC) | payer BC, OTHER ==
[~2019-03-21] VITALS: Ht 188 cm; Wt 131.5 kg
[~2019-03-21 08:36] MED LIST changes: +B COTAB3 PO; +BISO5TAB2 PO; -BUPIVACAINE HCL 0.25% 30 ML VIAL XX ONE; -GLIM2TAB PO; +GLIM2TAB2 PO; -GLYCOPYRROLATE INJ 0.2 MG/ML 2 ML VIAL As Ordered ONE; -HYDROmorphone HCL 2 MG/ML 1ML VIAL (J1170) As Ordered ONE; -HumaLOG INSULIN (NovoLOG) PER UNIT As Ordered ONE; -HumaLOG INSULIN (NovoLOG) PER UNIT SC ONE; +JARD1TAB PO; -KETOROLAC 60 MG/2 ML VIAL (J1885) As Ordered ONE; -LIDOCAINE 2% INJ 100 MG/5 ML SDV (FOR ANES.) As Ordered ONE; +LOSA100T50 PO; -LR 1,000 ML IV SCH; -METF500T PO; +METF500T13 PO; -METOCLOPRAMIDE INJ 10MG/2ML VIAL (J2765) IV PRN; -MIDAZOLAM INJ 2 MG/2 ML VIAL (J2250) As Ordered ONE; -NEOSTIGMINE 1MG/ML 5 ML SYRINGE (J2710) As Ordered ONE; -NORCO, ANEXSIA 5/325MG TABLET (HYDROcodone/ACETAMINOPHEN) PO PRN; -ONDANSETRON 4MG/2ML VIAL (J2405) As Ordered ONE; -ONDANSETRON 4MG/2ML VIAL (J2405) IV PRN; -PROPOFOL 500 MG/50 ML VIAL As Ordered ONE; -ROCURONIUM BROMIDE 50 MG/5 ML VIAL As Ordered ONE; +TRAD5TAB PO; -fentaNYL 100 MCG/2 ML INJECTION (J3010) As Ordered ONE; -fentaNYL 100 MCG/2 ML INJECTION (J3010) IV PRN
[2019-03-21] MEDS ORDERED: NS 1,000 ML IV ONE (09:15)
[2019-03-21] MEDS ORDERED: LIDOCAINE 2% INJ 100 MG/5 ML SDV (FOR ANES.) As Ordered ONE (10:00)
[2019-03-21] MEDS ORDERED: PROPOFOL 200 MG/20 ML VIAL As Ordered ONE ×2 (10:00→10:47)
--- NOTE | 2019-03-21 10:52 | ROOR ---
Patient Name: Korey Xie Procedure Date: 03/21/2019 10:13 AM Date of : 1960 Age: 58 Room: [facility] Gender: Male Note Status: Finalized Procedure: Colonoscopy Indications: Screening for colorectal malignant neoplasm Providers: Chalo Carty MD Referring MD: Myriam Hansen MD Requesting Provider: Medicines: Monitored Anesthesia Care Complications: No immediate complications. Procedure: Pre-Anesthesia Assessment: - Prior to the procedure, a History and Physical was performed, and patient medications and allergies were reviewed. The patient is competent. The risks and benefits of the procedure and the sedation options and risks were discussed with the patient. All questions were answered and informed consent was obtained. Patient identification and proposed procedure were verified by the physician, the nurse and the anesthesiologist in the procedure room. Mental Status Examination: alert and oriented. Airway Examination: normal oropharyngeal airway and neck mobility. Respiratory Examination: clear to auscultation. CV Examination: normal. Prophylactic Antibiotics: The patient does not require prophylactic antibiotics. Prior Anticoagulants: The patient has taken no previous anticoagulant or antiplatelet agents. ASA Grade Assessment: II - A patient with mild systemic disease. After reviewing the risks and benefits, the patient was deemed in satisfactory condition to undergo the procedure. The anesthesia plan was to use monitored anesthesia care (MAC). Immediately prior to administration of medications, the patient was re-assessed for adequacy to receive sedatives. The heart rate, respiratory rate, oxygen saturations, blood pressure, adequacy of pulmonary ventilation, and response to care were monitored throughout the procedure. The physical status of the patient was re-assessed after the procedure. The Colonoscope was introduced through the anus and advanced to the terminal ileum, with identification of the appendiceal orifice and IC valve. The colonoscopy was performed without difficulty. The patient tolerated the procedure well. The quality of the bowel preparation was good. The terminal ileum, ileocecal valve, appendiceal orifice, and rectum were photographed. Scope insertion time was 3 minutes. Scope withdrawal time was 9 minutes. The total duration of the procedure was 12 minutes. Findings: The perianal and digital rectal examinations were normal. The terminal ileum appeared normal. Three sessile polyps were found in the ascending colon. The polyps were 5 to 8 mm in size. These polyps were removed with a cold snare. Resection and retrieval were complete. Verification of patient identification for the specimen was done by the physician and nurse using the patient's name, date and medical record number. Estimated blood loss was minimal. A 8 mm polyp was found in the transverse colon. The polyp was sessile. The polyp was removed with a cold snare. Resection and retrieval were complete. Non-bleeding external and internal hemorrhoids were found during retroflexion. The hemorrhoids were medium-sized. Impression: - The examined portion of the ileum was normal. - Three 5 to 8 mm polyps in the ascending colon, removed with a cold snare. Resected and retrieved. - One 8 mm polyp in the transverse colon, removed with a cold snare. Resected and retrieved. - Non-bleeding external and internal hemorrhoids. Recommendation: - Patient has a contact number available for emergencies. The signs and symptoms of potential delayed complications were discussed with the patient. Return to normal activities tomorrow. Written discharge instructions were provided to the patient. - High fiber diet. - Continue present medications. - Use fiber, for example Citrucel, Fibercon, Konsyl or Metamucil. - Await pathology results. - Repeat colonoscopy in 3 - 5 years for surveillance based on pathology results. - Telephone GI clinic for pathology results in 2 weeks. - Return to primary care physician. Chalo Carty MD Chalo Carty MD 03/21/2019 10:52:07 AM Electronically signed by Chalo Carty MD Number of Addenda: 0 Note Initiated On: 03/21/2019 10:13 AM Estimated Blood Loss: Estimated blood loss was minimal.
[2019-03-21 11:10] VITALS: BP 118/79
== END 2019-03-21 11:21 | disposition home or self-care (01) ==
LOC: M OPP 08:36
PROVIDERS: ATTEND Internal Medicine Gastroenterology
DX: Z12.11 Encounter for screening for malignant neoplasm of colon (principal); K64.8 Other hemorrhoids; D12.2 Benign neoplasm of ascending colon; D12.3 Benign neoplasm of transverse colon; I10 Essential (primary) hypertension; E78.00 Pure hypercholesterolemia, unspecified; E11.9 Type 2 diabetes mellitus without complications; Z79.84 Long term (current) use of oral hypoglycemic drugs; Z79.899 Other long term (current) drug therapy; Z88.0 Allergy status to penicillin

== ENCOUNTER → 2021-03-19 | Outpatient (REF) | payer BC, OTHER ==
[~2021-03-19] MED LIST changes: -GLIM2TAB2 PO; +GLIM2TAB4 PO
== END ==
LOC: M LAB REF 18:44
PROVIDERS: ATTEND Internal Medicine Endocrinology, Diabetes & Metabolism
DX: E04.1 Nontoxic single thyroid nodule (principal)

== ENCOUNTER → 2021-03-21 | Outpatient (CLI) | payer BC, OTHER ==
[~2021-03-21] MED LIST changes: +ISOVUE-300 61% 50ML VIAL As Ordered ONE; +LIDOCAINE 1% MDV 20ML VIAL As Ordered ONE; +TRIAMCINOLONE ACETONIDE SUSP 40 MG/ML VIAL (J3301) As Ordered ONE
--- NOTE | 2021-03-21 16:22 | REP ---
INDICATION: UNILAT PRIMARY OSTEOARTHRITIS LT HIP. COMPARISON: None TECHNIQUE: The procedure was performed by TARA Chou, under the direct supervision of Dr. Adams. The benefits and risks of the procedure were explained to the patient, and an informed consent was obtained. Directly prior to the start of the procedure, a formal time-out was completed in the procedure room. The left hip joint space was localized using fluoroscopic guidance. The skin was prepped and draped in a sterile fashion. Approximately 5 mL of 1% Lidocaine 10 mg/ml was used as a local anesthetic. Using fluoroscopic guidance, a #22 gauge spinal needle was inserted and advanced into the left hip joint space. Approximately 1 mL of Isovue 300 was injected to verify placement. Six mL of a solution containing 5 mL 1% lidocaine 10 mg/ml and 1 cc Kenalog 40 milligrams/milliliter was injected into the joint space. The needle was removed and hemostasis was achieved. FINDINGS: The patient tolerated the procedure well and there were no immediate complications. IMPRESSION: 1. Technically successful left hip arthrogram. 0.2 minutes of fluoroscopy time was utilized for this procedure. Some fluoroscopic images are performed with last image hold technology. These images require no additional radiation. <Electronically signed by Alta Garcias > 03/21/21 1233 <Electronically signed by Matheus Adams > 03/21/21 [id number]
== END ==
LOC: M RADPRO 10:59
PROVIDERS: ATTEND Orthopaedic Surgery
DX: M16.12 Unilateral primary osteoarthritis, left hip (principal)
CPT/HCPCS: 20610; 77002; J3301; Q9967

== ENCOUNTER → 2021-06-13 | Outpatient (REF) | payer OTHER ==
[~2021-06-13] MED LIST changes: +BISO1TAB18 PO; -BISO5TAB2 PO; -ISOVUE-300 61% 50ML VIAL As Ordered ONE; -LIDOCAINE 1% MDV 20ML VIAL As Ordered ONE; +LOSA100T45 PO; -LOSA100T50 PO; -TRIAMCINOLONE ACETONIDE SUSP 40 MG/ML VIAL (J3301) As Ordered ONE
[2021-06-13 15:50] LABS: HEMATOCRIT 45.3 % (42.0-52.0); HEMOGLOBIN 14.4 g/dl (13.5-17.5); MEAN CORPUSCULAR HEMOGLOBIN 29.4 pg (27.0-33.0); MEAN CORPUSCULAR HGB CONC 31.8 g/dl (32.0-36.5); MEAN CORPUSCULAR VOLUME 92.6 fl (80.0-96.0); PLATELET COUNT, AUTOMATED 277 10^3/uL (150-450); RED BLOOD COUNT 4.89 10^6/uL (4.30-6.10); WHITE BLOOD COUNT 7.5 10^3/uL (4.0-10.0)
[2021-06-13 16:08] LABS: HEMOGLOBIN A1c 6.1 %
[2021-06-13 16:34] LABS: ALBUMIN 3.5 GM/DL (3.2-5.2); ALT/SGPT 15 U/L (12-78); BLOOD UREA NITROGEN 18 MG/DL (7-18); CALCIUM LEVEL 8.8 MG/DL (8.8-10.2); CARBON DIOXIDE LEVEL 29 MEQ/L (21-32); CHLORIDE LEVEL 106 MEQ/L (98-107); CHOLESTEROL LEVEL 145 MG/DL (<200); CHOLESTEROL RISK RATIO 2.843 (<5); CREATININE FOR GFR 0.88 MG/DL (0.70-1.30); GLOMERULAR FILTRATION RATE > 60.0 (>49); GLUCOSE, FASTING 102 MG/DL (70-100); HDL CHOLESTEROL 51 MG/DL (>40); LDL CHOLESTEROL 81 MG/DL (<100); NON-HDL-C 94 MG/DL; POTASSIUM SERUM 4.1 MEQ/L (3.5-5.1); SODIUM LEVEL 142 MEQ/L (136-145); TOTAL PROTEIN 7.2 GM/DL (6.4-8.2); TRIGLYCERIDES LEVEL 67 MG/DL (<150)
[2021-06-13 16:35] LABS: BILIRUBIN,TOTAL < 0.1 MG/DL (0.2-1.0)
== END ==
LOC: M LAB REF 15:28
PROVIDERS: ATTEND Internal Medicine Cardiovascular Disease
DX: E78.5 Hyperlipidemia, unspecified (principal); E11.9 Type 2 diabetes mellitus without complications; D64.9 Anemia, unspecified
CPT/HCPCS: 80053; 80061; 83036; 85027; G0103

== ENCOUNTER → 2021-11-04 | Outpatient (CLI) | payer BC, OTHER ==
[~2021-11-04] MED LIST changes: +ISOVUE-300 61% 50ML VIAL As Ordered ONE; +LIDOCAINE 1% MDV 20ML VIAL As Ordered ONE; +TRIAMCINOLONE ACETONIDE SUSP 40 MG/ML VIAL (J3301) As Ordered ONE
== END ==
LOC: M RADPRO 10:29
PROVIDERS: ATTEND Orthopaedic Surgery
DX: M16.12 Unilateral primary osteoarthritis, left hip (principal)
CPT/HCPCS: 20610; 77002; J3301; Q9967

== ENCOUNTER → 2022-06-26 | Outpatient (CLI) | payer BC, OTHER ==
[~2022-06-26] MED LIST changes: +ISOVUE-300 61% 100ML VIAL ONE; -ISOVUE-300 61% 50ML VIAL As Ordered ONE; -LIDOCAINE 1% MDV 20ML VIAL As Ordered ONE; +LIDOCAINE 1% MDV 20ML VIAL ONE; +SODIUM BICARBONATE 8.4% INJ 50MEQ 50ML VIAL ONE; -TRIAMCINOLONE ACETONIDE SUSP 40 MG/ML VIAL (J3301) As Ordered ONE
== END ==
LOC: M PLAIMG 14:16
PROVIDERS: ATTEND Orthopaedic Surgery
DX: M16.12 Unilateral primary osteoarthritis, left hip (principal)

== ENCOUNTER → 2022-10-06 | Outpatient (CLI) | payer BC, OTHER ==
[~2022-10-06] MED LIST changes: -ISOVUE-300 61% 100ML VIAL ONE; -LIDOCAINE 1% MDV 20ML VIAL ONE; -LOSA100T45 PO; +LOSA100T46 PO; -SODIUM BICARBONATE 8.4% INJ 50MEQ 50ML VIAL ONE
[2022-10-06 12:54] LABS: ALBUMIN 3.8 G/DL (3.2-5.2); ALKALINE PHOSPHATASE 66 U/L (46-116); ALT/SGPT 13 U/L (7.0-40); AST/SGOT 14 U/L (<34); BILIRUBIN,TOTAL 0.4 MG/DL (0.3-1.2); BLOOD UREA NITROGEN 17 MG/DL (9-23); CARBON DIOXIDE LEVEL 30 MMOL/L (20-31); CHLORIDE LEVEL 106 MMOL/L (98-107); CHOLESTEROL LEVEL 140 MG/DL (<200); CHOLESTEROL RISK RATIO 3.34 (<5); GLOMERULAR FILTRATION RATE > 60.0 (>49); GLUCOSE, FASTING 169 MG/DL (74-106); HDL CHOLESTEROL 41.8 MG/DL (>40); LDL CHOLESTEROL 72.4 MG/DL (<100); NON-HDL-C 98.2 MG/DL; POTASSIUM SERUM 3.9 MMOL/L (3.5-5.1); SODIUM LEVEL 141 MMOL/L (136-145); TOTAL PROTEIN 7.1 G/DL (5.7-8.2); TRIGLYCERIDES LEVEL 129 MG/DL (<150)
[2022-10-06 12:56] LABS: HEMATOCRIT 46.3 % (42.0-52.0); MEAN CORPUSCULAR HEMOGLOBIN 29.2 pg (27.0-33.0); MEAN CORPUSCULAR HGB CONC 32.4 g/dl (32.0-36.5); MEAN CORPUSCULAR VOLUME 90.3 fl (80.0-96.0); PLATELET COUNT, AUTOMATED 263 10^3/uL (150-450); RED BLOOD COUNT 5.13 10^6/uL (4.30-6.10); WHITE BLOOD COUNT 7.5 10^3/uL (4.0-10.0)
[2022-10-06 13:23] LABS: CREATININE, URINE 88.2 MG/DL
[2022-10-06 13:24] LABS: MALB URINE SIEMENS < 3.0 MG/L; MAU/CREAT RATIO 3.4 MCG/MG (0.0-30.0)
== END ==
LOC: M WUC 09:54
PROVIDERS: ATTEND Internal Medicine Endocrinology, Diabetes & Metabolism
DX: E11.65 Type 2 diabetes mellitus with hyperglycemia (principal)

== ENCOUNTER → 2022-11-11 | Outpatient (CLI) | payer BC, OTHER ==
[~2022-11-11] MED LIST changes: +ISOVUE-300 61% 100ML VIAL As Ordered ONE; +LIDOCAINE 1% MDV 20ML VIAL As Ordered ONE; +TRIAMCINOLONE ACETONIDE SUSP 40MG/ML 1ML VIAL As Ordered ONE
== END ==
LOC: M RAD 15:18
PROVIDERS: ATTEND Orthopaedic Surgery
DX: M16.12 Unilateral primary osteoarthritis, left hip (principal)
CPT/HCPCS: 20610; 77002; J3301; Q9967

== ENCOUNTER → 2023-05-19 | Outpatient (CLI) | payer BC, OTHER | LOC: M RAD 12:14 | PROVIDERS: ATTEND Orthopaedic Surgery | DX: M16.12 Unilateral primary osteoarthritis, left hip (principal) | CPT/HCPCS: 20610; 77002; J3301; Q9967 ==

== ENCOUNTER → 2023-11-10 | Outpatient (CLI) | payer BC | LOC: M RAD 14:25 | PROVIDERS: ATTEND Orthopaedic Surgery | DX: M16.12 Unilateral primary osteoarthritis, left hip (principal) | CPT/HCPCS: 20610; 77002; J3301; Q9967 ==

== ENCOUNTER → 2024-05-03 | Outpatient (CLI) | payer BC ==
[~2024-05-03] MED LIST changes: -ISOVUE-300 61% 100ML VIAL As Ordered ONE; -LIDOCAINE 1% MDV 20ML VIAL As Ordered ONE; -TRIAMCINOLONE ACETONIDE SUSP 40MG/ML 1ML VIAL As Ordered ONE
[2024-05-03 11:54] LABS: HEMOGLOBIN A1c 6.1 % (4.0-6.0)
[2024-05-03 11:57] LABS: ALBUMIN 3.6 G/DL (3.2-5.2); ALKALINE PHOSPHATASE 54 U/L (40-129); ALT/SGPT 16 U/L (7.0-40); AST/SGOT 10 U/L (<34); BILIRUBIN,TOTAL 0.5 MG/DL (0.3-1.2); BLOOD UREA NITROGEN 20 MG/DL (9-23); CALCIUM LEVEL 9.5 MG/DL (8.3-10.6); CARBON DIOXIDE LEVEL 30 MMOL/L (20-31); CHLORIDE LEVEL 105 MMOL/L (98-107); CHOLESTEROL LEVEL 163 MG/DL (<200); CHOLESTEROL RISK RATIO 2.72 (<5); CREATININE FOR GFR 0.92 MG/DL (0.70-1.30); GLOMERULAR FILTRATION RATE > 60.0 (>49); GLUCOSE, FASTING 125 MG/DL (74-106); HDL CHOLESTEROL 59.9 MG/DL (>40); LDL CHOLESTEROL 87.3 MG/DL (<100); NON-HDL-C 103.1 MG/DL; POTASSIUM SERUM 4.4 MMOL/L (3.5-5.1); SODIUM LEVEL 143 MMOL/L (136-145); TOTAL PROTEIN 6.8 G/DL (5.7-8.2); TRIGLYCERIDES LEVEL 79 MG/DL (<150)
[2024-05-03 11:59] LABS: CREATININE, URINE 163.9 MG/DL; MAU/CREAT RATIO 42.7 MCG/MG (0.0-30.0)
== END ==
LOC: M WUC 08:32
PROVIDERS: ATTEND Nurse Practitioner Family
DX: I10 Essential (primary) hypertension (principal); E11.9 Type 2 diabetes mellitus without complications; E78.2 Mixed hyperlipidemia

== ENCOUNTER → 2024-10-06 | Outpatient (CLI) | payer BC ==
[2024-10-06 14:53] LABS: HEMOGLOBIN A1c 6.2 % (4.0-6.0)
== END ==
LOC: M WUC 12:50
PROVIDERS: ATTEND Nurse Practitioner Family
DX: E11.9 Type 2 diabetes mellitus without complications (principal)

== ENCOUNTER → 2025-04-17 | Outpatient (CLI) | payer MEDICARE, BC ==
[2025-04-17 13:04] LABS: BASO # 0.1 10^3/uL (0.0-0.2); BASO % 0.9 % (0.0-1.0); EOS # 0.2 10^3/uL (0.0-0.5); EOS % 3.7 % (0.0-3.0); LYMPH # 1.3 10^3/uL (1.5-5.0); LYMPH % 21.3 % (24.0-44.0); MONO # 0.5 10^3/uL (0.0-0.8); MONO % 7.8 % (2.0-8.0); NEUTROPHILS # 3.9 10^3/uL (1.5-8.5); NEUTROPHILS % 66.0 % (36.0-66.0); PLATELET COUNT, AUTOMATED 268 10^3/uL (150-450)
[2025-04-17 13:07] LABS: IRON (FE) 74.0 UG/DL (65-175)
[2025-04-17 13:08] LABS: PERCENT SATURATION 22.4 % (19.7-50.0)
[2025-04-17 13:32] LABS: ESTIMATED AVERAGE GLUCOSE 131.0 MG/DL (60-110)
== END ==
LOC: M WUC 09:20
PROVIDERS: ATTEND Orthopaedic Surgery
DX: Z01.812 Encounter for preprocedural laboratory examination (principal); M25.552 Pain in left hip

== ENCOUNTER → 2025-04-17 | Outpatient (CLI) | payer MEDICARE, BC ==
[2025-04-17 13:03] LABS: BASO # 0.1 10^3/uL (0.0-0.2); BASO % 0.8 % (0.0-1.0); EOS # 0.2 10^3/uL (0.0-0.5); EOS % 3.8 % (0.0-3.0); LYMPH # 1.3 10^3/uL (1.5-5.0); LYMPH % 21.3 % (24.0-44.0); MONO # 0.5 10^3/uL (0.0-0.8); MONO % 8.8 % (2.0-8.0); NEUTROPHILS # 3.9 10^3/uL (1.5-8.5); NEUTROPHILS % 64.8 % (36.0-66.0); PLATELET COUNT, AUTOMATED 266 10^3/uL (150-450)
[2025-04-17 13:08] LABS: ALT/SGPT 10 U/L (7.0-40); AST/SGOT 11 U/L (<34); CALCIUM LEVEL 8.6 MG/DL (8.3-10.6); CARBON DIOXIDE LEVEL 30 MMOL/L (20-31); CHLORIDE LEVEL 102 MMOL/L (98-107); CHOLESTEROL LEVEL 143 MG/DL (<200); CHOLESTEROL RISK RATIO 2.55 (<5); CREATININE FOR GFR 0.92 MG/DL (0.70-1.30); GLOMERULAR FILTRATION RATE > 90.0 (>49); LDL CHOLESTEROL 71.1 MG/DL (<100); NON-HDL-C 87.1 MG/DL; POTASSIUM SERUM 4.4 MMOL/L (3.5-5.1); SODIUM LEVEL 139 MMOL/L (136-145); TRIGLYCERIDES LEVEL 80 MG/DL (<150)
[2025-04-17 13:33] LABS: ESTIMATED AVERAGE GLUCOSE 131.0 MG/DL (60-110)
[2025-04-17 13:36] LABS: CREATININE, URINE 139.2 MG/DL; MALB URINE SIEMENS < 3.0 MG/L
[2025-04-17 13:37] LABS: PSA SCREENING 0.80 NG/ML (< 4.00)
== END ==
LOC: M WUC 09:18
PROVIDERS: ATTEND Nurse Practitioner Family
DX: Z01.812 Encounter for preprocedural laboratory examination (principal); M25.552 Pain in left hip; I10 Essential (primary) hypertension; E11.9 Type 2 diabetes mellitus without complications; E78.2 Mixed hyperlipidemia; N40.0 Benign prostatic hyperplasia without lower urinary tract symptoms; Z12.5 Encounter for screening for malignant neoplasm of prostate
CPT/HCPCS: 36415; 80053; 80061; 82040; 82043; 82728; 83036; 83550; 85025; G0103